=== PATIENT | male | born 1975 | race Two or more races ===

== ENCOUNTER 2024-07-14 00:03 | Emergency (ER) | payer MEDICARE, MEDICAID, SELFPAY ==
[2024-07-14 00:04] VITALS: BMI 22.7
--- NOTE | 2024-07-14 00:24 | PC.NURSE ---
Pt called for EKG and no answer. Per on site security the Pt cross the street and got on a car and left. will call the Pt 2 more time
== END 2024-07-14 01:07 | disposition left against medical advice (07) ==
LOC: SERX 01:16
PROVIDERS: Emergency Provider Emergency Medicine
DX: Z53.21 Procedure and treatment not carried out due to patient leaving prior to being seen by health care provider (principal)